=== PATIENT | female | born 1985 | race Caucasian/White ===

== ENCOUNTER 2018-10-07 12:55 | Emergency (ER) | payer OTHER ==
[2018-10-07 14:46] LABS: RAPID GROUP A STREP NEGATIVE (NEGATIVE)
[2018-10-07 14:53] LABS: APPEARANCE,URINE Clear (CLEAR); BILIRUBIN,URINE Negative (NEGATIVE); COLOR,URINE Yellow (YELLOW); GLUCOSE, URINE (UA) Negative (NEGATIVE); KETONES,URINE 15 mg/dL (NEGATIVE); LEUKOCYTE ESTERASE ,URINE Negative (NEGATIVE); NITRATE,URINE Negative (NEGATIVE); OCCULT BLOOD,URINE Negative (NEGATIVE); PROTEIN,URINE Negative (NEGATIVE)
== END 2018-10-07 15:23 | disposition home or self-care (01) ==
LOC: EDH 12:55
DX: G43.A0 Cyclical vomiting, in migraine, not intractable (principal); R50.81 Fever presenting with conditions classified elsewhere
CPT/HCPCS: 81003; 87804; 87880